=== PATIENT | female | born 1975 ===

== ENCOUNTER 2016-10-10 20:35 | Emergency (ER) | payer SELFPAY ==
[2016-10-10 21:44] LABS: PH,URINE 6.5 (5.0-8.0); URINE BILIRUBIN NEGATIVE (NEGATIVE); URINE BLOOD NEGATIVE (NEGATIVE); URINE GLUCOSE (UA) NEGATIVE (NEGATIVE); URINE LEUKOCYTE ESTERASE NEGATIVE (NEGATIVE); URINE NITRITE NEGATIVE (NEGATIVE); URINE PROTEIN NEGATIVE (NEGATIVE); URINE UROBILINOGEN NORMAL (0-1 mg/dl)
[2016-10-10 21:47] LABS: HCG,QUALITATIVE URINE NEGATIVE
[2016-10-10 21:48] LABS: URINE APPEARANCE CLEAR; URINE COLOR YELLOW
[2016-10-10 22:01] LABS: ABSOLUTE NEUTROPHIL COUNT 5.6 K/mm3 (1.8-7.7); BASO % 0.2 % (0.2-1.0); EOS # 0.2 (0.0-0.5); EOS % 1.7 % (0.9-2.9); HEMATOCRIT 36.8 % (37.0-47.0); HEMOGLOBIN 12.5 gm/l (12.0-16.0); IMM NEUT% 0.1 % (0-1); LYMPH # 2.9 (1.0-4.8); LYMPH % 31.1 % (15-45); MEAN CELL VOLUME 89.5 fl (81.0-99.0); MEAN CORPUSCULAR HEMOGLOBIN 30.4 pg (27.0-31.0); MEAN PLATELET VOLUME 9.6 fl (7.4-10.4); MONO # 0.7 (0.0-0.8); NEUT % 59.9 % (43-75); PLATELET COUNT 324 K/mm3 (130-400); RED CELL DISTRIBUTION WIDTH 12.1 % (11.5-14.5)
[2016-10-10 22:10] LABS: ALB/GLOB RATIO 1.3 (>1.0); ALBUMIN 4.1 gm/dL (3.5-5.7); CALCIUM 9.3 mg/dL (8.6-10.3)
[2016-10-10] MEDS ORDERED: SUCRALFATE 1 G/10 ML DOSE ONE (22:28)
[2016-10-10] MEDS ORDERED: PROCHLORPERAZINE 5 MG/ML 2 ML VIAL ONE (22:28)
[2016-10-10] MEDS ORDERED: LACTATED RINGERS 1,000 ML ONE (22:28)
[2016-10-10] MEDS ORDERED: MORPHINE SULFATE 4 MG/ML SYRINGE ONE (22:28)
[2016-10-10] MEDS ORDERED: FAMOTIDINE 10 MG/ML 2ML VIAL ONE (22:29)
--- NOTE | 2016-10-11 07:29 | RAD ---
CHEST - 2 VIEWS COMPARISON: None. HISTORY: Right upper quadrant pain for one month. FINDINGS: Views: Frontal and lateral chest Lungs: Normal Heart and vessels: Normal Trachea and bronchi: Normal Mediastinum and ailin: Normal Costophrenic sulci: Normal Chest wall and bones: Normal. Upper abdomen: Normal. IMPRESSION: Negative 2 view chest.
--- NOTE | 2016-10-11 07:31 | US ---
ABDOMINAL-LIMITED COMPARISON: None HISTORY: Right upper quadrant pain for one month. Nausea. FINDINGS: Gall bladder: Normal. Length 3.7 cm. Wall thickness 3.8 mm. No stone or sludge. Negative sonographic Odell sign. Common hepatic duct: 2.7 mm. Common bile duct: 4.7 mm. IMPRESSION: 1. Contracted gallbladder resulting in some mild thickening of the wall. No stones or sludge. No bile duct dilation. Preliminary report by [facility] radiologist Blessing Arellano MD 10/10/2016 at 22:23
== END 2016-10-10 22:50 | disposition home or self-care (01) ==
LOC: ED 20:35
DX: R10.9 Unspecified abdominal pain (principal); R53.81 Other malaise; R73.03 Prediabetes; R11.0 Nausea
CPT/HCPCS: 83690; 81025; 85025; 80053; 81003; 84484; 71020; 76705; 96375 ×2; 99284 ×2; 96374; 93005; A9270; J0780; J2270; J7120